=== PATIENT | male | born 1945 | race Caucasian/White ===

== ENCOUNTER → 2019-12-04 09:46 | Outpatient (CLI) | payer OTHER, SELFPAY ==
[2019-12-04 10:26] LABS: Alanine Aminotransferase 60 IU/L (<50); Albumin 4.3 g/dL (3.5-5.0); Albumin Globulin Ratio 1.5 (1.0-2.8); Alkaline Phosphatase 53 U/L (38-126); Aspartate Aminotransferase 51 IU/L (17-59); BUN Creatinine Ratio 28.6 (6-22); Bilirubin Total 0.6 mg/dL (0.2-1.3); Blood Urea Nitrogen 20 mg/dL (9-20); Calcium 9.4 mg/dL (8.4-10.2); Carbon Dioxide 24 mmol/L (22-32); Chloride 109 mmol/L (98-107); Cholesterol 96 mg/dL (140-199); Estimated Glomerular Filt Rate > 60.0 mL/min (>60); Globulin 2.9 g/dL (1.7-4.1); Glucose 116 mg/dL (80-110); HDL Cholesterol 30 mg/dL (40-60); HEMOLYSIS < 15 (0-50); LDL Cholesterol Calculated 49 mg/dL (<100); Potassium 4.1 mmol/L (3.4-5.1); Sodium 140 mmol/L (137-145); Total Protein 7.2 g/dL (6.3-8.2); Triglycerides 83 mg/dL (35-150)
[2019-12-04 10:43] LABS: Free T3, Triiodothyronine Free 3.67 pg/mL (2.77-5.27); Free T4, Direct Thyroxine 0.83 ng/dL (0.78-2.19)
[2019-12-04 10:56] LABS: Prostate Specific Antigen Scrn 0.252 ng/mL (0.1-4.0)
[2019-12-04 10:57] LABS: Thyroid Stimulating Hormone 3.81 uIU/mL (0.47-4.68)
[2019-12-04 16:39] LABS: Microalbumin Urine Random 1.7 mg/dL (0-1.6)
[2019-12-04 16:40] LABS: Creatinine Urine Random 221.8 mg/dL; Microalbumi Creatinin Ratio Ur 7.6 ug/mg CR (<30)
== END ==
PROVIDERS: PCP Nurse Practitioner; Referring Provider Nurse Practitioner; Visit Provider Nurse Practitioner
DX: E78.5 Hyperlipidemia, unspecified (principal); I10 Essential (primary) hypertension; Z79.899 Other long term (current) drug therapy; Z86.73 Personal history of transient ischemic attack (TIA), and cerebral infarction without residual deficits; Z95.5 Presence of coronary angioplasty implant and graft
CPT/HCPCS: 36415; 80053; 80061; 82043; 82570; 84439; 84443; 84481; G0103

== ENCOUNTER 2019-12-04 10:30 | Outpatient (RCR) | payer OTHER, SELFPAY ==
--- NOTE | 2019-11-01 18:32 | PT.OIE ---
Current Diagnoses Difficulty in walking, not elsewhere classified (11/01/19) Other abnormalities of gait and mobility (11/01/19) Weakness (11/01/19) Personal history of transient ischemic attack (TIA), and cerebral infarction without residual deficits (11/01/19) Past Medical History (Last Updated 06/12/19 @ 21:28 by Edilia Ballard) Expressive aphasia (Acute) History of heart attack (Acute) History of stroke (Resolved ~2008) Hyperlipidemia (Acute) Hypertension (Acute) Other retirement (current) drug therapy (Acute) Weakness of right side of body (Acute) Past Surgical History (Last Updated 06/12/19 @ 21:28 by Edilia Ballard) History of heart artery stent (Acute ~2017) Visit Care Team Role Provider Type KESHIA White Attending Provider Advanced Access Analyst Primary Care Provider Referring Provider Specialty: Family Practice Address: [address] [place] [address], [facility] Email: [email or web address] Physical Therapy Initial Evaluation PT-OP-A Visit Information Start: 11/01/19 10:53 Freq: Status: Active Protocol: Document 11/01/19 16:00 [facility] (Rec: 11/01/19 17:57 [facility] [id number]) Out-Patient Physical Therapy Visit Information Visit Information Visit Type Initial Evaluation Visit Start Time 16:07 Visit Stop Time 16:48 Total Visit Minutes 41 Visit Number 1 Number of CITY ALDERMAN Visits 0 PT-OP-B Current Condition Start: 11/01/19 10:53 Freq: Status: Active Protocol: Document 11/01/19 16:00 [facility] (Rec: 11/01/19 17:57 [facility] [id number]) Current Condition History of Current Condition Onset Date since CVA Current Complaints weakness & balance History of Current Condition Pt fell one night when going to/from bathroom and could not get him up. and son were needed to get him up . wants advice for getting him up from ground. Stroke was 11 years ago and has only fallen aobut 6 times after the first year. This most recent fall was about 1 month ago. Typically just with him at home and son will be gone again after phase 3. Deficits noted since stroke: expressive aphasia, and RUE & LE weakness. notes pt normally has good balance and rarely falls. Denies any dizziness. In the house he does not use his cane. He only uses it outside the house. Treatment Goals Patient/Caregiver Goals wants to be able to help him get off ground PT-OP-E Functional Tests Start: 11/01/19 10:53 Freq: Status: Active Protocol: Document 11/01/19 16:00 [facility] (Rec: 11/01/19 18:32 [facility] [id number]) Functional Tests Dynamic Gait Index (DGI) Score 16 DGI Impairment Rating 20 to <40% Impaired (Score 15- 19) PT-OP-G Mobility & Gait Start: 11/01/19 10:53 Freq: Status: Active Protocol: Document 11/01/19 16:00 [facility] (Rec: 11/01/19 18:32 [facility] [id number]) OP Mobility Evaluation Transfers Sit to Stand requires use of UE OP Gait Assessment Comments Gait Comments Pt amb with cane presenting to clinic but did testing without cane. He has significant L lat lean in order to clear RLE during swing phase. Dec push off and dec stance time on RLE PT-OP-M Strength Start: 11/01/19 10:53 Freq: Status: Active Protocol: Document 11/01/19 16:00 [facility] (Rec: 11/01/19 17:57 [facility] [id number]) Hip Strength Hip Manual Muscle Testing Right Flexion (L2) 3- Fair- Abduction 4- Good- Adduction 4- Good- External Rotation 0 Zero Internal Rotation 0 Zero Comments abd and add tested seated and did not try s/l so not pure MMT Left Flexion (L2) 3+ Fair+ External Rotation 4+ Good+ Internal Rotation 4+ Good+ Knee Strength Knee Manual Muscle Testing Right Flexion (S2) 1 Trace Extension (L3) 3+ Fair+ Left Flexion (S2) 5 Normal Extension (L3) 5 Normal Ankle/Foot Strength Ankle and Foot Manual Muscle Testing Right Dorsiflexion (L4) 0 Zero Plantarflexion (S1) 1 Trace Left Dorsiflexion (L4) 5 Normal Plantarflexion (S1) 5 Normal Comments tested seated PT-OP-Q Treatments Start: 11/01/19 10:53 Freq: Status: Active Protocol: Document 11/01/19 16:00 [facility] (Rec: 11/01/19 18:32 [facility] [id number]) Self-Care/Home Management Treatment Education Patient Education Fall Risk Other Education edu on different strategies for up/down from ground, edu on how balance systems work & why balance training is important PT-OP-T Assessment and Plan Start: 11/01/19 10:53 Freq: Status: Active Protocol: Document 11/01/19 16:00 [facility] (Rec: 11/01/19 18:32 [facility] [id number]) Physical Therapy Assessment Rehab Potential Rehabilitation Potential Good Evaluation Complexity Number of Personal Factors/Comorbidities 3 or More Number of Body Systems Impaired 4 or More Clinical Presentation at Evaluation Evolving Impairments Impairments Activity Tolerance,Balance, Functional Activities, Functional Mobility,Gait, Strength,Transfers Goals activity [place] Wrapper Maker Goal (LTG) Pt and will be able to get pt up/down from the ground . LTG Duration 01/01/20 balance Impairment DGI [place] Wrapper Maker Goal (LTG) Improve DGI to in order to show dec risk for falls. LTG Duration 01/01/20 strength Short Term Goal (STG) Pt will be indep with HEP STG Duration 12/01/19 Care Home Goal (LTG) Pt will have inc in LE strength B 1 grade except in areas that MMT was 1/5 or less . LTG Duration 01/01/20 Assessment Summary Assessment Pt presents with dec ability to get up/down from ground, weakness and dec balance. He has these impairments since CVA 11 years ago. His is concerned because recent fall required assistance of herself and another person to get pt up from the ground. Pt has not fallen very frequently since CVA but she is concerned about ability to get him up and down. He does have weakness and dec balanec and would benefit from PT to work on this along with transfers to/ from ground. Physical Therapy Plan Frequency and Duration Frequency of Treatment 1-2x/week Duration of Treatment 2 months Plan of Care Start Date 11/01/19 Plan of Care End Date 01/01/20 Therapeutic Interventions Therapeutic Interventions Aquatic Therapy,Balance Training,Gait Training,Home Exercise Program,Manual Therapy,Neuromuscular Re- education,Orthotic/Prosthetic Management,Patient/Caregiver Education,Self-Care/Home Management,Taping,Therapeutic Activities,Therapeutic Exercises Modalities Cold Pack/Ice Massage,Electric Stimulation,Hot Packs Next Visit Focus/Plan Next Note Type Treatment Note Next Visit Plan work on up/down to/from ground , edu on HEP for strengthening , show AFO as possible support
--- NOTE | 2019-11-01 18:33 | PT.OPPOC ---
Physical, Occupational & Speech Therapy At [facility] Current Diagnoses Difficulty in walking, not elsewhere classified (11/01/19) Other abnormalities of gait and mobility (11/01/19) Weakness (11/01/19) Personal history of transient ischemic attack (TIA), and cerebral infarction without residual deficits (11/01/19) Visit Care Team Role Provider Type KESHIA White Attending Provider Advanced Bread Packer Primary Care Provider Referring Provider Specialty: [facility] Address: [address] [place] [address], [facility] Email: [email or web address] Plan Of Care PT-OP-T Assessment and Plan Start: 11/01/19 10:53 Freq: Status: Active Protocol: Document 11/01/19 16:00 [facility] (Rec: 11/01/19 18:32 [facility] [id number]) Physical Therapy Assessment Rehab Potential Rehabilitation Potential Good Evaluation Complexity Number of Personal Factors/Comorbidities 3 or More Number of Body Systems Impaired 4 or More Clinical Presentation at Evaluation Evolving Impairments Impairments Activity Tolerance,Balance, Functional Activities, Functional Mobility,Gait, Strength,Transfers Goals activity Supervisor Photocomposition Goal (LTG) Pt and will be able to get pt up/down from the ground . LTG Duration 01/01/20 balance Impairment DGI 16 Senior Living Goal (LTG) Improve DGI to 1924 in order to show dec risk for falls. LTG Duration 01/01/20 strength Short Term Goal (STG) Pt will be indep with HEP STG Duration 12/01/19 Senior Living Goal (LTG) Pt will have inc in LE strength B 1 grade except in areas that MMT was 1/5 or less . LTG Duration 01/01/20 Assessment Summary Assessment Pt presents with dec ability to get up/down from ground, weakness and dec balance. He has these impairments since CVA 11 years ago. His is concerned because recent fall required assistance of herself and another person to get pt up from the ground. Pt has not fallen very frequently since CVA but she is concerned about ability to get him up and down. He does have weakness and dec balanec and would benefit from PT to work on this along with transfers to/ from ground. Physical Therapy Plan Frequency and Duration Frequency of Treatment 1-2x/week Duration of Treatment 2 months Plan of Care Start Date 11/01/19 Plan of Care End Date 01/01/20 Therapeutic Interventions Therapeutic Interventions Aquatic Therapy,Balance Training,Gait Training,Home Exercise Program,Manual Therapy,Neuromuscular Re- education,Orthotic/Prosthetic Management,Patient/Caregiver Education,Self-Care/Home Management,Taping,Therapeutic Activities,Therapeutic Exercises Modalities Cold Pack/Ice Massage,Electric Stimulation,Hot Packs Next Visit Focus/Plan Next Note Type Treatment Note Next Visit Plan work on up/down to/from ground , edu on HEP for strengthening , show AFO as possible support Plan of Care Dates Plan of Care Start Date 11/01/19 Plan of Care End Date 01/01/20 Electronically Signed by: Caitie Mckeon, PT 11/01/19 [id number] Please Sign and Return: I have reviewed this Plan of Care and certify that the skilled therapy services above are required to meet the patient?s needs. Physician Signature Date Printed Name and Credentials Clinical Instructor Signature Printed Name and Credentials
--- NOTE | 2019-11-08 18:35 | PT.OTN ---
Current Diagnoses Difficulty in walking, not elsewhere classified (11/08/19) Other abnormalities of gait and mobility (11/08/19) Weakness (11/08/19) Personal history of transient ischemic attack (TIA), and cerebral infarction without residual deficits (11/08/19) Physical Therapy Treatment Note PT-OP-A Visit Information Start: 11/01/19 10:53 Freq: Status: Active Protocol: Document 11/08/19 18:28 [facility] (Rec: 11/08/19 18:35 [facility] [id number]) Out-Patient Physical Therapy Visit Information Visit Information Visit Type Treatment Note Visit Start Time 16:03 Visit Stop Time 16:43 Total Visit Minutes 40 Visit Number 2 Number of DRILL SHARPENER OPERATOR Visits 0 PT-OP-B Current Condition Start: 11/01/19 10:53 Freq: Status: Active Protocol: Document 11/01/19 16:00 [facility] (Rec: 11/01/19 17:57 [facility] [id number]) Current Condition History of Current Condition Onset Date since CVA Current Complaints weakness & balance History of Current Condition Pt fell one night when going to/from bathroom and could not get him up. and son were needed to get him up . wants advice for getting him up from ground. Stroke was 11 years ago and has only fallen aobut 6 times after the first year. This most recent fall was about 1 month ago. Typically just with him at home and son will be gone again after phase 3. Deficits noted since stroke: expressive aphasia, and RUE & LE weakness. notes pt normally has good balance and rarely falls. Denies any dizziness. In the house he does not use his cane. He only uses it outside the house. Treatment Goals Patient/Caregiver Goals wants to be able to help him get off ground PT-OP-C Subjective Start: 11/01/19 10:53 Freq: Status: Active Protocol: Document 11/08/19 18:28 [facility] (Rec: 11/08/19 18:35 [facility] [id number]) OP-PT Subjective Patient Comments Patient Comments reports pt had another fall yesterday in the dining room. Unsure why he fell. She and her son were needed to get him up. PT-OP-E Functional Tests Start: 11/01/19 10:53 Freq: Status: Active Protocol: Document 11/01/19 16:00 [facility] (Rec: 11/01/19 18:32 [facility] [id number]) Functional Tests Dynamic Gait Index (DGI) Score 16 DGI Impairment Rating 20 to <40% Impaired (Score 15- 19) PT-OP-G Mobility & Gait Start: 11/01/19 10:53 Freq: Status: Active Protocol: Document 11/01/19 16:00 [facility] (Rec: 11/01/19 18:32 [facility] [id number]) OP Mobility Evaluation Transfers Sit to Stand requires use of UE OP Gait Assessment Comments Gait Comments Pt amb with cane presenting to clinic but did testing without cane. He has significant L lat lean in order to clear RLE during swing phase. Dec push off and dec stance time on RLE PT-OP-M Strength Start: 11/01/19 10:53 Freq: Status: Active Protocol: Document 11/01/19 16:00 [facility] (Rec: 11/01/19 17:57 [facility] [id number]) Hip Strength Hip Manual Muscle Testing Right Flexion (L2) 3- Fair- Abduction 4- Good- Adduction 4- Good- External Rotation 0 Zero Internal Rotation 0 Zero Comments abd and add tested seated and did not try s/l so not pure MMT Left Flexion (L2) 3+ Fair+ External Rotation 4+ Good+ Internal Rotation 4+ Good+ Knee Strength Knee Manual Muscle Testing Right Flexion (S2) 1 Trace Extension (L3) 3+ Fair+ Left Flexion (S2) 5 Normal Extension (L3) 5 Normal Ankle/Foot Strength Ankle and Foot Manual Muscle Testing Right Dorsiflexion (L4) 0 Zero Plantarflexion (S1) 1 Trace Left Dorsiflexion (L4) 5 Normal Plantarflexion (S1) 5 Normal Comments tested seated PT-OP-Q Treatments Start: 11/01/19 10:53 Freq: Status: Active Protocol: Document 11/08/19 18:28 [facility] (Rec: 11/08/19 18:35 [facility] [id number]) Gym Equipment Shuttle Balance blue clips Reps/Duration w/ pertubations of board Comments fwd & side:WBOS, NBOS fwd: staggered stance B Therapeutic Exercises Standing Exercises side step Side bilateral Reps/Minutes 6ftx2 ea hip ext Side bilateral Reps/Minutes 10 hip abd Side bilateral Reps/Minutes 10 sit<>stand Standing Exercise Name no hands Reps/Minutes 5 Therapeutic Activity Therapeutic Activity ground transfers Comments 1.transfer down to 12 in step then to black mat at lowest set up 2.1.transfer down to 8 in step stool then to black mat at lowest set up 3.1.transfer down to 8 in step stool then 4 in step then to step stool then to black mat at lowest set up w/ approximation to RLE Neuro Re-Education Treatment Balance Activities toe taps Details alt to 4 in step Reps/Duration 8 B PT-OP-T Assessment and Plan Start: 11/01/19 10:53 Freq: Status: Active Protocol: Document 11/08/19 18:28 [facility] (Rec: 11/08/19 18:35 [facility] [id number]) Physical Therapy Assessment Goals activity Nursing Home Goal (LTG) Pt and will be able to get pt up/down from the ground . LTG Duration 01/01/20 balance Impairment DGI Nursing Home Goal (LTG) Improve DGI to in order to show dec risk for falls. LTG Duration 01/01/20 strength Short Term Goal (STG) Pt will be indep with HEP STG Duration 12/01/19 Display Carver Goal (LTG) Pt will have inc in LE strength B 1 grade except in areas that MMT was 1/5 or less . LTG Duration 01/01/20 Assessment Summary Assessment Pt hadn trouble getting down to 4 in step from step stool and difficulty getting back up without use of approximation into RLE in bent position. Able to do transfer from 8 in stool to mat table SBA. He did well with balance and improved with balance board balance with inc time on it. Physical Therapy Plan Frequency and Duration Frequency of Treatment 1-2x/week Duration of Treatment 2 months Plan of Care Start Date 11/01/19 Plan of Care End Date 01/01/20 Next Visit Focus/Plan Next Note Type Treatment Note Next Visit Plan work on up/down to/from ground , review HEP for strengthening , show AFO as possible support , balance on uneven surfaces & dynamic balance
--- NOTE | 2019-11-14 17:14 | PT.OTN ---
Current Diagnoses Difficulty in walking, not elsewhere classified (11/14/19) Other abnormalities of gait and mobility (11/14/19) Weakness (11/14/19) Personal history of transient ischemic attack (TIA), and cerebral infarction without residual deficits (11/14/19) Physical Therapy Treatment Note PT-OP-A Visit Information Start: 11/01/19 10:53 Freq: Status: Active Protocol: Document 11/14/19 16:49 [facility] (Rec: 11/14/19 17:14 [facility] [id number]) Out-Patient Physical Therapy Visit Information Visit Information Visit Type Treatment Note Visit Start Time 14:34 Visit Stop Time 15:14 Total Visit Minutes 40 Visit Number 3 Number of WHARFINGER CHIEF Visits 0 PT-OP-B Current Condition Start: 11/01/19 10:53 Freq: Status: Active Protocol: Document 11/01/19 16:00 [facility] (Rec: 11/01/19 17:57 [facility] [id number]) Current Condition History of Current Condition Onset Date since CVA Current Complaints weakness & balance History of Current Condition Pt fell one night when going to/from bathroom and could not get him up. and son were needed to get him up . wants advice for getting him up from ground. Stroke was 11 years ago and has only fallen aobut 6 times after the first year. This most recent fall was about 1 month ago. Typically just with him at home and son will be gone again after phase 3. Deficits noted since stroke: expressive aphasia, and RUE & LE weakness. notes pt normally has good balance and rarely falls. Denies any dizziness. In the house he does not use his cane. He only uses it outside the house. Treatment Goals Patient/Caregiver Goals wants to be able to help him get off ground PT-OP-C Subjective Start: 11/01/19 10:53 Freq: Status: Active Protocol: Document 11/14/19 16:49 [facility] (Rec: 11/14/19 17:14 [facility] [id number]) OP-PT Subjective Patient Comments Patient Comments Pt reports doing exercsies at home. wants to continue to work on up/down from ground again. PT-OP-E Functional Tests Start: 11/01/19 10:53 Freq: Status: Active Protocol: Document 11/01/19 16:00 [facility] (Rec: 11/01/19 18:32 [facility] [id number]) Functional Tests Dynamic Gait Index (DGI) Score 16 DGI Impairment Rating 20 to <40% Impaired (Score 15- 19) PT-OP-G Mobility & Gait Start: 11/01/19 10:53 Freq: Status: Active Protocol: Document 11/01/19 16:00 [facility] (Rec: 11/01/19 18:32 [facility] [id number]) OP Mobility Evaluation Transfers Sit to Stand requires use of UE OP Gait Assessment Comments Gait Comments Pt amb with cane presenting to clinic but did testing without cane. He has significant L lat lean in order to clear RLE during swing phase. Dec push off and dec stance time on RLE PT-OP-M Strength Start: 11/01/19 10:53 Freq: Status: Active Protocol: Document 11/01/19 16:00 [facility] (Rec: 11/01/19 17:57 [facility] [id number]) Hip Strength Hip Manual Muscle Testing Right Flexion (L2) 3- Fair- Abduction 4- Good- Adduction 4- Good- External Rotation 0 Zero Internal Rotation 0 Zero Comments abd and add tested seated and did not try s/l so not pure MMT Left Flexion (L2) 3+ Fair+ External Rotation 4+ Good+ Internal Rotation 4+ Good+ Knee Strength Knee Manual Muscle Testing Right Flexion (S2) 1 Trace Extension (L3) 3+ Fair+ Left Flexion (S2) 5 Normal Extension (L3) 5 Normal Ankle/Foot Strength Ankle and Foot Manual Muscle Testing Right Dorsiflexion (L4) 0 Zero Plantarflexion (S1) 1 Trace Left Dorsiflexion (L4) 5 Normal Plantarflexion (S1) 5 Normal Comments tested seated PT-OP-Q Treatments Start: 11/01/19 10:53 Freq: Status: Active Protocol: Document 11/14/19 16:49 [facility] (Rec: 11/14/19 17:14 [facility] [id number]) Gym Equipment Shuttle Balance red clips Comments fwd: WBOS & NBOS side:W PARMINDER Therapeutic Exercises Supine Exercises eccentric lower Supine Exercise Name eccentric Side bilateral Reps/Minutes 3 Comments from flexed position SKTC Supine Exercise Name assisted - instructed Side bilateral Reps/Minutes 30 sec x2 Standing Exercises side step Side bilateral Reps/Minutes 20ft hip ext Side bilateral Reps/Minutes 10 hip abd Side bilateral Reps/Minutes 10 Therapeutic Activity Therapeutic Activity ground transfers Comments 1. transfer down to 8 in stool then to 4 in step then to ground 2. transfer to 4 in step with mod A, transfer to 8 in step then to blackmat table at lowest setting Manual Therapy Treatment Joint Mobilizations hip Joint b Direction inf FM Grade III PT-OP-T Assessment and Plan Start: 11/01/19 10:53 Freq: Status: Active Protocol: Document 11/14/19 16:49 [facility] (Rec: 11/14/19 17:14 [facility] [id number]) Physical Therapy Assessment Goals activity Coat Padder Goal (LTG) Pt and will be able to get pt up/down from the ground . LTG Duration 01/01/20 balance Impairment DGI Coat Padder Goal (LTG) Improve DGI to in order to show dec risk for falls. LTG Duration 01/01/20 strength Short Term Goal (STG) Pt will be indep with HEP STG Duration 12/01/19 Half-Way Goal (LTG) Pt will have inc in LE strength B 1 grade except in areas that MMT was 1/5 or less . LTG Duration 01/01/20 Assessment Summary Assessment Pt able to do transfer all the way up and down from gorund but required mod A from ground to 4 in step due to inability to sit w/hips flexed enough to push up to 4 in step from ground. Manual mobs done to inc hip ROM which improved hip PROM which should helpw ith ability to transfer from ground. Physical Therapy Plan Frequency and Duration Frequency of Treatment 1-2x/week Duration of Treatment 2 months Plan of Care Start Date 11/01/19 Plan of Care End Date 01/01/20 Next Visit Focus/Plan Next Note Type Treatment Note Next Visit Plan work on up/down to/from ground , review HEP for strengthening , show AFO as possible support , balance on uneven surfaces & dynamic balance
--- NOTE | 2019-11-22 18:28 | PT.OTN ---
Current Diagnoses Difficulty in walking, not elsewhere classified (11/22/19) Other abnormalities of gait and mobility (11/22/19) Weakness (11/22/19) Personal history of transient ischemic attack (TIA), and cerebral infarction without residual deficits (11/22/19) Physical Therapy Treatment Note PT-OP-A Visit Information Start: 11/01/19 10:53 Freq: Status: Active Protocol: Document 11/22/19 18:24 [facility] (Rec: 11/22/19 18:28 [facility] [id number]) Out-Patient Physical Therapy Visit Information Visit Information Visit Type Treatment Note Visit Start Time 16:02 Visit Stop Time 16:45 Total Visit Minutes 43 Visit Number 4 Number of ETCHER PRINTED CIRCUIT BOARDS Visits 0 PT-OP-B Current Condition Start: 11/01/19 10:53 Freq: Status: Active Protocol: Document 11/01/19 16:00 [facility] (Rec: 11/01/19 17:57 [facility] [id number]) Current Condition History of Current Condition Onset Date since CVA Current Complaints weakness & balance History of Current Condition Pt fell one night when going to/from bathroom and could not get him up. and son were needed to get him up . wants advice for getting him up from ground. Stroke was 11 years ago and has only fallen aobut 6 times after the first year. This most recent fall was about 1 month ago. Typically just with him at home and son will be gone again after phase 3. Deficits noted since stroke: expressive aphasia, and RUE & LE weakness. notes pt normally has good balance and rarely falls. Denies any dizziness. In the house he does not use his cane. He only uses it outside the house. Treatment Goals Patient/Caregiver Goals wants to be able to help him get off ground PT-OP-C Subjective Start: 11/01/19 10:53 Freq: Status: Active Protocol: Document 11/22/19 18:24 [facility] (Rec: 11/22/19 18:28 [facility] [id number]) OP-PT Subjective Patient Comments Patient Comments reports pt has been compliant with exercises PT-OP-E Functional Tests Start: 11/01/19 10:53 Freq: Status: Active Protocol: Document 11/01/19 16:00 [facility] (Rec: 11/01/19 18:32 [facility] [email or web address]) Functional Tests Dynamic Gait Index (DGI) Score 16 DGI Impairment Rating 20 to <40% Impaired (Score 15- 19) PT-OP-G Mobility & Gait Start: 11/01/19 10:53 Freq: Status: Active Protocol: Document 11/01/19 16:00 [facility] (Rec: 11/01/19 18:32 [facility] [email or web address]) OP Mobility Evaluation Transfers Sit to Stand requires use of UE OP Gait Assessment Comments Gait Comments Pt amb with cane presenting to clinic but did testing without cane. He has significant L lat lean in order to clear RLE during swing phase. Dec push off and dec stance time on RLE PT-OP-M Strength Start: 11/01/19 10:53 Freq: Status: Active Protocol: Document 11/01/19 16:00 [facility] (Rec: 11/01/19 17:57 [facility] [id number]) Hip Strength Hip Manual Muscle Testing Right Flexion (L2) 3- Fair- Abduction 4- Good- Adduction 4- Good- External Rotation 0 Zero Internal Rotation 0 Zero Comments abd and add tested seated and did not try s/l so not pure MMT Left Flexion (L2) 3+ Fair+ External Rotation 4+ Good+ Internal Rotation 4+ Good+ Knee Strength Knee Manual Muscle Testing Right Flexion (S2) 1 Trace Extension (L3) 3+ Fair+ Left Flexion (S2) 5 Normal Extension (L3) 5 Normal Ankle/Foot Strength Ankle and Foot Manual Muscle Testing Right Dorsiflexion (L4) 0 Zero Plantarflexion (S1) 1 Trace Left Dorsiflexion (L4) 5 Normal Plantarflexion (S1) 5 Normal Comments tested seated PT-OP-Q Treatments Start: 11/01/19 10:53 Freq: Status: Active Protocol: Document 11/22/19 18:24 [facility] (Rec: 11/22/19 18:28 [facility] [id number]) Therapeutic Exercises Supine Exercises eccentric lower Supine Exercise Name eccentric Side bilateral Reps/Minutes 3 Comments from flexed position Sitting Exercises V sit Sitting Exercise Name seated on plinth w/B LE bent up Reps/Minutes 30 sec x2 eccentric lower Sitting Exercise Name reverse sit up Reps/Minutes 10 Comments on plinth Therapeutic Activity Therapeutic Activity ground transfers Comments 1. transfer down to 8 in stool then to ground 2. transfer to 4 in step with mod A, transfer to 8 in step w /min A then to blackndt table at lowest setting Manual Therapy Treatment Joint Mobilizations hip Joint b Direction inf FM Grade III Neuro Re-Education Treatment Balance Activities tilt board Details fwd & back & side/side Comments Wt shifts & balancing blue foam Details WBOS, NBOS EO/EC & head turns PT-OP-T Assessment and Plan Start: 11/01/19 10:53 Freq: Status: Active Protocol: Document 11/22/19 18:24 [facility] (Rec: 11/22/19 18:28 [facility] [email or web address]) Physical Therapy Assessment Goals activity Demonstrator Sewing Techniques Goal (LTG) Pt and will be able to get pt up/down from the ground . LTG Duration 01/01/20 balance Impairment DGI Demonstrator Sewing Techniques Goal (LTG) Improve DGI to in order to show dec risk for falls. LTG Duration 01/01/20 strength Short Term Goal (STG) Pt will be indep with HEP STG Duration 12/01/19 [facility] Goal (LTG) Pt will have inc in LE strength B 1 grade except in areas that MMT was 1/5 or less . LTG Duration 01/01/20 Assessment Summary Assessment Pt has significant difficulty with abdomenal exercises which likely contributes to his difficulty for getting up from ground. He has difficulty maintaining seated on ground w /knees bent up position. Physical Therapy Plan Frequency and Duration Frequency of Treatment 1-2x/week Duration of Treatment 2 months Plan of Care Start Date 11/01/19 Plan of Care End Date 01/01/20 Next Visit Focus/Plan Next Note Type Treatment Note Next Visit Plan work on up/down to/from ground , review HEP for strengthening , show AFO as possible support , balance on uneven surfaces & dynamic balance
--- NOTE | 2019-11-28 18:03 | PT.OTN ---
Current Diagnoses Difficulty in walking, not elsewhere classified (11/28/19) Other abnormalities of gait and mobility (11/28/19) Weakness (11/28/19) Personal history of transient ischemic attack (TIA), and cerebral infarction without residual deficits (11/28/19) Physical Therapy Treatment Note PT-OP-A Visit Information Start: 11/01/19 10:53 Freq: Status: Active Protocol: Document 11/28/19 17:40 [facility] (Rec: 11/28/19 18:03 [facility] [email or web address]) Out-Patient Physical Therapy Visit Information Visit Information Visit Type Treatment Note Visit Start Time 16:47 Visit Stop Time 17:28 Total Visit Minutes 41 Visit Number 5 Number of ANTENNA DESIGN ENGINEER Visits 0 PT-OP-B Current Condition Start: 11/01/19 10:53 Freq: Status: Active Protocol: Document 11/01/19 16:00 [facility] (Rec: 11/01/19 17:57 [facility] [id number]) Current Condition History of Current Condition Onset Date since CVA Current Complaints weakness & balance History of Current Condition Pt fell one night when going to/from bathroom and could not get him up. and son were needed to get him up . wants advice for getting him up from ground. Stroke was 11 years ago and has only fallen aobut 6 times after the first year. This most recent fall was about 1 month ago. Typically just with him at home and son will be gone again after phase 3. Deficits noted since stroke: expressive aphasia, and RUE & LE weakness. notes pt normally has good balance and rarely falls. Denies any dizziness. In the house he does not use his cane. He only uses it outside the house. Treatment Goals Patient/Caregiver Goals wants to be able to help him get off ground PT-OP-C Subjective Start: 11/01/19 10:53 Freq: Status: Active Protocol: Document 11/28/19 17:40 [facility] (Rec: 11/28/19 18:03 [facility] [id number]) OP-PT Subjective Patient Comments Patient Comments Pt asks not to work on up/down to/from ground today. PT-OP-E Functional Tests Start: 11/01/19 10:53 Freq: Status: Active Protocol: Document 11/01/19 16:00 [facility] (Rec: 11/01/19 18:32 [facility] [id number]) Functional Tests Dynamic Gait Index (DGI) Score 16 DGI Impairment Rating 20 to <40% Impaired (Score 15- 19) PT-OP-G Mobility & Gait Start: 11/01/19 10:53 Freq: Status: Active Protocol: Document 11/01/19 16:00 [facility] (Rec: 11/01/19 18:32 [facility] [id number]) OP Mobility Evaluation Transfers Sit to Stand requires use of UE OP Gait Assessment Comments Gait Comments Pt amb with cane presenting to clinic but did testing without cane. He has significant L lat lean in order to clear RLE during swing phase. Dec push off and dec stance time on RLE PT-OP-M Strength Start: 11/01/19 10:53 Freq: Status: Active Protocol: Document 11/01/19 16:00 [facility] (Rec: 11/01/19 17:57 [facility] [id number]) Hip Strength Hip Manual Muscle Testing Right Flexion (L2) 3- Fair- Abduction 4- Good- Adduction 4- Good- External Rotation 0 Zero Internal Rotation 0 Zero Comments abd and add tested seated and did not try s/l so not pure MMT Left Flexion (L2) 3+ Fair+ External Rotation 4+ Good+ Internal Rotation 4+ Good+ Knee Strength Knee Manual Muscle Testing Right Flexion (S2) 1 Trace Extension (L3) 3+ Fair+ Left Flexion (S2) 5 Normal Extension (L3) 5 Normal Ankle/Foot Strength Ankle and Foot Manual Muscle Testing Right Dorsiflexion (L4) 0 Zero Plantarflexion (S1) 1 Trace Left Dorsiflexion (L4) 5 Normal Plantarflexion (S1) 5 Normal Comments tested seated PT-OP-Q Treatments Start: 11/01/19 10:53 Freq: Status: Active Protocol: Document 11/28/19 17:40 [facility] (Rec: 11/28/19 18:03 [facility] [id number]) Therapeutic Exercises Supine Exercises eccentric lower Supine Exercise Name eccentric Side bilateral Reps/Minutes 4 Comments from flexed position SKTC Supine Exercise Name assisted - instructed Side right Reps/Minutes 30 sec Sitting Exercises heel slide Sitting Exercise Name seated on plinth Side left Reps/Minutes 2x4 V sit Sitting Exercise Name seated on plinth w/B LE bent up Reps/Minutes 30 sec x2 eccentric lower Sitting Exercise Name reverse sit up Reps/Minutes 10 Comments on plinth w/feet up Neuro Re-Education Treatment Balance Activities blue tpads Details staggered stance B EO/EC tilt board Details fwd & back & side/side Comments Wt shifts EO& balancing w/EC blue foam Details WBOS, NBOS EO/EC toe taps Details alt to 4 in step Reps/Duration 5 B Self-Care/Home Management Treatment Education Caregiver Education discussed and showed how AFO could be helpful & took down info re: AFO, discussed having 4 in and 9 in step to then transition to a chair and dimensions of step were given to ; discussed progress he is making and continuation of HEP after dc PT-OP-T Assessment and Plan Start: 11/01/19 10:53 Freq: Status: Active Protocol: Document 11/28/19 17:40 [facility] (Rec: 11/28/19 18:03 [facility] [id number]) Physical Therapy Assessment Goals activity Adult Caregiver Goal (LTG) Pt and will be able to get pt up/down from the ground . LTG Duration 01/01/20 balance Impairment DGI 16 Adult Caregiver Goal (LTG) Improve DGI to in order to show dec risk for falls. LTG Duration 01/01/20 strength Short Term Goal (STG) Pt will be indep with HEP STG Duration 12/01/19 Group Home Goal (LTG) Pt will have inc in LE strength B 1 grade except in areas that MMT was 1/5 or less . LTG Duration 01/01/20 Assessment Summary Assessment pt cont to have difficultyw ith abdomenal exercsies but was able to perform with min cuieng. He is doing better with gait with inc hip flex and and pt made aware of this. Pt was not very interested in AFO but took note for possible future use. Physical Therapy Plan Frequency and Duration Frequency of Treatment 1-2x/week Duration of Treatment 2 months Plan of Care Start Date 11/01/19 Plan of Care End Date 01/01/20 Next Visit Focus/Plan Next Note Type Progress Note Next Visit Plan review HEP, work on up/down from ground w/, DGI & strength testing, DC if pt and have met ground transfer goal
--- NOTE | 2019-12-04 16:00 | PT.OTN ---
Current Diagnoses Difficulty in walking, not elsewhere classified (12/04/19) Other abnormalities of gait and mobility (12/04/19) Weakness (12/04/19) Personal history of transient ischemic attack (TIA), and cerebral infarction without residual deficits (12/04/19) Physical Therapy Treatment Note PT-OP-A Visit Information Start: 11/01/19 10:53 Freq: Status: Active Protocol: Document 12/04/19 16:00 [facility] (Rec: 12/05/19 09:32 [facility] [id number]) Out-Patient Physical Therapy Visit Information Visit Information Visit Type Discharge Summary Visit Start Time 10:35 Visit Stop Time 11:15 Total Visit Minutes 40 Visit Number 6 Number of ACCOUNT EXECUTIVE Visits 0 PT-OP-B Current Condition Start: 11/01/19 10:53 Freq: Status: Active Protocol: Document 11/01/19 16:00 [facility] (Rec: 11/01/19 17:57 [facility] [id number]) Current Condition History of Current Condition Onset Date since CVA Current Complaints weakness & balance History of Current Condition Pt fell one night when going to/from bathroom and could not get him up. and son were needed to get him up . wants advice for getting him up from ground. Stroke was 11 years ago and has only fallen aobut 6 times after the first year. This most recent fall was about 1 month ago. Typically just with him at home and son will be gone again after phase 3. Deficits noted since stroke: expressive aphasia, and RUE & LE weakness. notes pt normally has good balance and rarely falls. Denies any dizziness. In the house he does not use his cane. He only uses it outside the house. Treatment Goals Patient/Caregiver Goals wants to be able to help him get off ground PT-OP-C Subjective Start: 11/01/19 10:53 Freq: Status: Active Protocol: Document 12/04/19 16:00 [facility] (Rec: 12/05/19 09:32 [facility] [id number]) OP-PT Subjective Patient Comments Patient Comments and pt want dc if she is able to get pt up from ground. noting progress PT-OP-E Functional Tests Start: 11/01/19 10:53 Freq: Status: Active Protocol: Document 12/04/19 16:00 [facility] (Rec: 12/05/19 09:33 [facility] [id number]) Functional Tests Dynamic Gait Index (DGI) Score 19 PT-OP-G Mobility & Gait Start: 11/01/19 10:53 Freq: Status: Active Protocol: Document 11/01/19 16:00 [facility] (Rec: 11/01/19 18:32 [facility] [id number]) OP Mobility Evaluation Transfers Sit to Stand requires use of UE OP Gait Assessment Comments Gait Comments Pt amb with cane presenting to clinic but did testing without cane. He has significant L lat lean in order to clear RLE during swing phase. Dec push off and dec stance time on RLE PT-OP-M Strength Start: 11/01/19 10:53 Freq: Status: Active Protocol: Document 12/04/19 16:00 [facility] (Rec: 12/05/19 09:33 [facility] [id number]) Hip Strength Hip Manual Muscle Testing Right Flexion (L2) 3 Fair Abduction 4- Good- Adduction 4- Good- External Rotation 3- Fair- Internal Rotation 0 Zero Comments abd and add tested seated and did not try s/l so not pure MMT Left Flexion (L2) 3+ Fair+ External Rotation 4+ Good+ Internal Rotation 5 Normal Knee Strength Knee Manual Muscle Testing Right Flexion (S2) 1 Trace Extension (L3) 3+ Fair+ Left Flexion (S2) 5 Normal Extension (L3) 5 Normal PT-OP-Q Treatments Start: 11/01/19 10:53 Freq: Status: Active Protocol: Document 12/04/19 16:00 [facility] (Rec: 12/05/19 09:32 [facility] [id number]) Therapeutic Exercises Supine Exercises eccentric lower Supine Exercise Name eccentric Side bilateral Reps/Minutes 4 Comments from flexed position SKTC Supine Exercise Name assisted - instructed Side right Reps/Minutes 30 sec Sitting Exercises V sit Sitting Exercise Name seated on plinth w/B LE bent up Reps/Minutes 30 sec x2 eccentric lower Sitting Exercise Name reverse sit up Reps/Minutes 10 Comments on plinth w/feet up Standing Exercises side step Side bilateral Reps/Minutes 10ft hip ext Side bilateral Reps/Minutes 15 hip abd Side bilateral Reps/Minutes 15 sit<>stand Standing Exercise Name no hands Reps/Minutes 8 Therapeutic Activity Therapeutic Activity ground transfers Comments 1. transfer down to 8 in stool then 4 in step then to ground 2. transfer to 4 in step with mod A from w/instruction, transfer to 8 in step w/min A for stabilization of RLE then to blackmat table at lowest setting w/stabilizing surfaces Neuro Re-Education Treatment Balance Activities DGI Details Self-Care/Home Management Treatment Education Other Education edu on importance of exercises even if its every other day, importance of cont walking daily, edu on resuming PT if noted dec in balance or inc falls PT-OP-T Assessment and Plan Start: 11/01/19 10:53 Freq: Status: Active Protocol: Document 12/04/19 16:00 [facility] (Rec: 12/05/19 09:32 [facility] [id number]) Physical Therapy Assessment Goals activity Longterm Goal (LTG) Pt and will be able to get pt up/down from the ground . LTG Duration achieved balance Impairment DGI Longterm Goal (LTG) Improve DGI to in order to show dec risk for falls. LTG Duration achieved strength Short Term Goal (STG) Pt will be indep with HEP STG Duration achieved Internal Grinding Machine Operator Goal (LTG) Pt will have inc in LE strength B 1 grade except in areas that MMT was 1/5 or less . LTG Duration some improvement in strength Assessment Summary Assessment Pt had improvemetn with muscular strength, balance and is now able to get up/dwon from ground w/.T hey are instructed that if he falls to first assess if he is hurt and ifhe hits his head to call EMS. Pt able tog o thorugh exercises with min to mod cueing with focus on posture throughout. DC d/t meeting goals. Physical Therapy Plan Discharge Physical Therapy Discharge Reasons Goals Met
== END 2019-12-06 10:52 ==
LOC: PHYS 10:30
PROVIDERS: PCP Nurse Practitioner; Referring Provider Nurse Practitioner; Visit Provider Nurse Practitioner
DX: R53.1 Weakness (principal); Z86.73 Personal history of transient ischemic attack (TIA), and cerebral infarction without residual deficits; R26.89 Other abnormalities of gait and mobility; R26.2 Difficulty in walking, not elsewhere classified
CPT/HCPCS: 97110; 97112; 97162; 97530; 97535

== ENCOUNTER → 2020-03-12 08:40 | Outpatient (CLI) | payer OTHER, SELFPAY ==
[2020-03-12 10:35] LABS: Hemoglobin A1C% w Est Avg Glu 5.7 % (4.0-6.0)
[2020-03-12 11:10] LABS: Alanine Aminotransferase 54 IU/L (<50); Albumin 4.2 g/dL (3.5-5.0); Albumin Globulin Ratio 1.4 (1.0-2.8); Alkaline Phosphatase 54 U/L (38-126); Aspartate Aminotransferase 50 IU/L (17-59); Bilirubin Total 0.7 mg/dL (0.2-1.3); Bilirubin Unconjugated 0.7 mg/dL (0.0-1.1); Cholesterol 94 mg/dL (140-199); Globulin 2.9 g/dL (1.7-4.1); Glucose 108 mg/dL (80-110); HDL Cholesterol 35 mg/dL (40-60); HEMOLYSIS < 15 (0-50); LDL Cholesterol Calculated 40 mg/dL (<100); Total Protein 7.1 g/dL (6.3-8.2); Triglycerides 97 mg/dL (35-150)
[2020-03-13 03:17] LABS: HBsAg Screen Negative (Negative); Hepatitis A Antibody IgM Negative (Negative); Hepatitis B Core Antibody IgM Negative (Negative); Hepatitis C Antibody <0.1 s/co ratio (0.0-0.9)
== END ==
PROVIDERS: PCP Nurse Practitioner; Referring Provider Nurse Practitioner; Visit Provider Nurse Practitioner
DX: E78.5 Hyperlipidemia, unspecified (principal); I10 Essential (primary) hypertension; R73.9 Hyperglycemia, unspecified; R74.8 Abnormal levels of other serum enzymes; Z86.73 Personal history of transient ischemic attack (TIA), and cerebral infarction without residual deficits; R73.01 Impaired fasting glucose
CPT/HCPCS: 36415; 80061; 80074; 80076; 82947; 83036

== ENCOUNTER → 2020-06-04 11:04 | Outpatient (CLI) | payer OTHER, SELFPAY ==
[2020-06-04] MEDS: COVID-19 VACC #1, MRNA(MOD) 100 MCG/0.5 ML VIAL IM (11:13)
== END ==
PROVIDERS: PCP Nurse Practitioner; Visit Provider Internal Medicine
DX: Z23 Encounter for immunization (principal)
CPT/HCPCS: 0011A; 91301

== ENCOUNTER → 2020-07-02 11:22 | Outpatient (CLI) | payer OTHER, SELFPAY ==
[2020-07-02] MEDS: COVID-19 VACC #2, MRNA(MOD) 100 MCG/0.5 ML VIAL IM (11:39)
== END ==
PROVIDERS: PCP Nurse Practitioner; Visit Provider Internal Medicine
DX: Z23 Encounter for immunization (principal)
CPT/HCPCS: 0012A; 91301

== ENCOUNTER → 2021-06-30 09:13 | Outpatient (CLI) | payer MEDICARE, OTHER, SELFPAY ==
[2021-06-30 10:26] LABS: Hemoglobin A1C% w Est Avg Glu 5.6 % (4.0-6.0)
[2021-06-30 10:50] LABS: Alanine Aminotransferase 56 IU/L (<50); Albumin 4.4 g/dL (3.5-5.0); Albumin Globulin Ratio 1.4 (1.0-2.8); Alkaline Phosphatase 50 U/L (38-126); Aspartate Aminotransferase 48 IU/L (17-59); BUN Creatinine Ratio 28.4 (6-22); Bilirubin Total 0.6 mg/dL (0.2-1.3); Blood Urea Nitrogen 21 mg/dL (9-20); Calcium 9.5 mg/dL (8.4-10.2); Carbon Dioxide 27 mmol/L (22-32); Chloride 108 mmol/L (98-107); Cholesterol 123 mg/dL (140-199); Estimated Glomerular Filt Rate > 60.0 mL/min (>60); Globulin 3.2 g/dL (1.7-4.1); Glucose 117 mg/dL (80-110); HDL Cholesterol 40 mg/dL (40-60); HEMOLYSIS < 15 (0-50); LDL Cholesterol Calculated 67 mg/dL (<100); Potassium 4.2 mmol/L (3.4-5.1); Sodium 143 mmol/L (137-145); Total Protein 7.6 g/dL (6.3-8.2); Triglycerides 78 mg/dL (35-150)
[2021-06-30 10:53] LABS: Creatinine Urine Random 169.2 mg/dL
[2021-06-30 10:56] LABS: Microalbumin Urine Random 3.9 mg/dL (0-1.6)
[2021-06-30 11:07] LABS: Free T3, Triiodothyronine Free 3.36 pg/mL (2.77-5.27); Free T4, Direct Thyroxine 0.93 ng/dL (0.78-2.19)
[2021-06-30 11:20] LABS: Prostate Specific Antigen 0.195 ng/mL (0.10-4.00)
== END ==
PROVIDERS: PCP Nurse Practitioner; Referring Provider Nurse Practitioner; Visit Provider Nurse Practitioner
DX: Z79.899 Other long term (current) drug therapy (principal); I10 Essential (primary) hypertension; Z86.73 Personal history of transient ischemic attack (TIA), and cerebral infarction without residual deficits; E78.5 Hyperlipidemia, unspecified; Z12.5 Encounter for screening for malignant neoplasm of prostate
CPT/HCPCS: 36415; 80053; 80061; 82043; 82570; 83036; 84153; 84439; 84443; 84481; G0103

== ENCOUNTER → 2021-07-01 11:02 | Outpatient (CLI) | payer MEDICARE, OTHER, SELFPAY ==
[2021-07-02 09:33] LABS: Fecal Immunochemical Test Negative (Negative)
== END ==
PROVIDERS: PCP Nurse Practitioner; Referring Provider Nurse Practitioner; Visit Provider Nurse Practitioner
DX: I10 Essential (primary) hypertension (principal); E78.5 Hyperlipidemia, unspecified; Z86.73 Personal history of transient ischemic attack (TIA), and cerebral infarction without residual deficits; Z79.899 Other long term (current) drug therapy
CPT/HCPCS: 82274

== ENCOUNTER → 2022-08-12 09:19 | Outpatient (CLI) | payer MEDICARE, OTHER, SELFPAY ==
[2022-08-12 10:07] LABS: Add Manual Diff / Slide Review NO; Basophils Absolute Auto 0 /uL (0-100); Basophils Percent Auto 0.6 % (0-2); Eosinophils Absolute Auto 300 /uL (0-450); Eosinophils Percent Auto 3.4 % (2-4); Hematocrit 41.3 % (41-53); Lymphocytes Absolute Auto 2500 /uL (1100-4500); Lymphocytes Percent Auto 32.7 % (25-40); Mean Corpuscular Hemoglobin 30.6 PG (26-34); Mean Corpuscular Volume 90.2 fL (80-100); Monocytes Absolute Auto 600 /uL (0-900); Monocytes Percent Auto 7.6 % (3-14); Neutrophils Absolute Auto 4200 /uL (1500-7000); Neutrophils Percent Auto 55.7 % (50-75); Platelet Count 282 X10^3/uL (150-400); Red Blood Cell Count 4.57 X10^6/uL (4.5-5.9); Red Cell Distribution Width 13.6 % (11.6-14.8); White Blood Cell Count 7.5 X10^3/uL (4.5-11.0)
[2022-08-12 10:28] LABS: Alanine Aminotransferase 51 IU/L (<50); Albumin 4.3 g/dL (3.5-5.0); Albumin Globulin Ratio 1.3 (1.0-2.8); Alkaline Phosphatase 51 U/L (38-126); Aspartate Aminotransferase 44 IU/L (17-59); BUN Creatinine Ratio 24.7 (6-22); Bilirubin Total 0.6 mg/dL (0.2-1.3); Blood Urea Nitrogen 19 mg/dL (9-20); Calcium 9.4 mg/dL (8.4-10.2); Carbon Dioxide 28 mmol/L (22-32); Chloride 104 mmol/L (98-107); Cholesterol 109 mg/dL (140-199); Estimated Glomerular Filt Rate > 60 mL/min (>60); Globulin 3.4 g/dL (1.7-4.1); Glucose 103 mg/dL (80-110); HDL Cholesterol 36 mg/dL (40-60); HEMOLYSIS < 15 (0-50); LDL Cholesterol Calculated 52 mg/dL (<100); Potassium 4.5 mmol/L (3.4-5.1); Sodium 142 mmol/L (137-145); Total Protein 7.7 g/dL (6.3-8.2); Triglycerides 106 mg/dL (35-150)
[2022-08-12 10:45] LABS: Free T3, Triiodothyronine Free 4.05 pg/mL (2.77-5.27); Free T4, Direct Thyroxine 0.91 ng/dL (0.78-2.19)
[2022-08-12 10:57] LABS: Prostate Specific Antigen Scrn 0.277 ng/mL (0.1-4.0)
[2022-08-12 10:59] LABS: Thyroid Stimulating Hormone 3.06 uIU/mL (0.47-4.68)
[2022-08-13 16:12] LABS: Hep C Virus Ab w/Reflex Quant NEGATIVE s/c (NEGATIVE)
== END ==
PROVIDERS: PCP Nurse Practitioner; Referring Provider Nurse Practitioner; Visit Provider Nurse Practitioner
DX: E78.5 Hyperlipidemia, unspecified (principal); Z12.5 Encounter for screening for malignant neoplasm of prostate; F03.90 Unspecified dementia, unspecified severity, without behavioral disturbance, psychotic disturbance, mood disturbance, and anxiety; I10 Essential (primary) hypertension; Z86.73 Personal history of transient ischemic attack (TIA), and cerebral infarction without residual deficits; Z79.899 Other long term (current) drug therapy; Z11.59 Encounter for screening for other viral diseases
CPT/HCPCS: 36415; 80053; 80061; 84439; 84443; 84481; 85025; 86803; G0103

== ENCOUNTER → 2022-08-13 09:26 | Outpatient (CLI) | payer MEDICARE, OTHER, SELFPAY ==
[2022-08-13 12:11] LABS: Creatinine Urine Random 102.2 mg/dL
[2022-08-13 12:15] LABS: Microalbumi Creatinin Ratio Ur 21.5 ug/mg CR (<30); Microalbumin Urine Random 2.2 mg/dL (0-1.6)
[2022-08-14 13:37] LABS: Fecal Immunochemical Test Negative (Negative)
== END ==
PROVIDERS: PCP Nurse Practitioner; Referring Provider Nurse Practitioner; Visit Provider Nurse Practitioner
DX: E78.5 Hyperlipidemia, unspecified (principal); F03.90 Unspecified dementia, unspecified severity, without behavioral disturbance, psychotic disturbance, mood disturbance, and anxiety; I10 Essential (primary) hypertension; Z86.73 Personal history of transient ischemic attack (TIA), and cerebral infarction without residual deficits; Z12.11 Encounter for screening for malignant neoplasm of colon
CPT/HCPCS: 82043; 82274; 82570

== ENCOUNTER → 2022-12-14 17:32 | Outpatient (CLI) | payer MEDICARE, OTHER, SELFPAY ==
[2022-12-14 17:54] LABS: Add Manual Diff / Slide Review NO; Basophils Absolute Auto 100 /uL (0-100); Basophils Percent Auto 0.8 % (0-2); Eosinophils Absolute Auto 300 /uL (0-450); Eosinophils Percent Auto 4.3 % (2-4); Hematocrit 40.2 % (41-53); Lymphocytes Absolute Auto 3000 /uL (1100-4500); Lymphocytes Percent Auto 38.4 % (25-40); Mean Corpuscular HGB Conc 34.9 % (30-36); Mean Corpuscular Hemoglobin 31.1 PG (26-34); Mean Corpuscular Volume 89.2 fL (80-100); Monocytes Absolute Auto 700 /uL (0-900); Monocytes Percent Auto 8.7 % (3-14); Neutrophils Absolute Auto 3800 /uL (1500-7000); Neutrophils Percent Auto 47.8 % (50-75); Platelet Count 240 X10^3/uL (150-400); Red Cell Distribution Width 13.9 % (11.6-14.8); White Blood Cell Count 7.9 X10^3/uL (4.5-11.0)
== END ==
PROVIDERS: PCP Nurse Practitioner; Referring Provider Family Medicine; Visit Provider Family Medicine
DX: K62.5 Hemorrhage of anus and rectum (principal)
CPT/HCPCS: 36415; 85025

== ENCOUNTER → 2023-08-20 12:14 | Outpatient (CLI) | payer MEDICARE, OTHER, SELFPAY ==
--- NOTE | 2023-08-20 12:16 | DI.ECHO.S_ITS ---
[facility] +---------+ : : [address] : : : : [id number] : : : : Phone: [phone]+ Echocardiogram Report + + :Name: VINCENT GOOD Study Date: 08/20/2023 Height: 69 in : :[facility] ReadingLocation: Weight: 191 lb : : Gender: Male BSA: 2.0 m2 : :: 1945 Age: 78 yrs BP: 174/74 mmHg: :Reason For Study: HYPERTENSION : :Ordering Physician: MARIELLA, : :JENNIFER Performed By: Beth Heredia : :Referring: JENNIFER WOLFF : + + Interpretation Summary Normal sinus rhythm. Normal LV size and wall thickness; normal wall motion and LV systolic function. EF is 60-65%. No diastolic dysfunction. Mild LA enlargement; otherwise normal chamber sizes. No significant valvular abnormalities. No prior study available for comparison. Procedure: A two-dimensional transthoracic echocardiogram with color flow and Doppler was performed. The study quality was technically adequate. There is no prior echocardiogram noted for this patient. The patient was in sinus rhythm with heart rates between 57-63 bpm during the exam. The patient had occasional PVCs during the exam. Left Ventricle: The left ventricle is normal in size. Proximal septal thickening is noted. The ejection fraction is estimated to be 60-65%. Right Ventricle: The right ventricle is normal in size and function. Atria: The left atrium is mildly dilated. Right atrial size is normal. There is no Doppler evidence for an interatrial shunt. Mitral Valve: The mitral valve is normal in structure and function. There is trace mitral regurgitation. Aortic Valve: The aortic valve is trileaflet. The aortic valve is slightly calcified. There is no aortic valve stenosis. No aortic regurgitation is present. Tricuspid Valve: The tricuspid valve is normal in structure and function. There is mild tricuspid regurgitation. Pulmonic Valve: The pulmonic valve leaflets are thin and pliable; valve motion is normal. There is no pulmonic valvular regurgitation. Great Vessels: The aortic root is normal size. The dimensions of the ascending aorta are normal. The IVC is of normal diameter and collapses greater than 50% with a sniff. This suggests a low right atrial pressure of 3 mm Hg. Pericardium/ Pleura There is no pericardial effusion. There is no pleural effusion. MMode/2D Measurements & Calculations LVIDd: 4.8 cm LVOT diam: 2.1 cm LVIDs: 3.3 cm Ao root diam: 3.2 cm FS: 30.5 % asc Aorta Diam: 2.9 cm IVSd: 0.82 cm Ao Arch Diam (Prox Trans): 3.2 cm LVPWd: 1.1 cm LV south. diameter/BSA (cm/m^2): 2.4 LV sys. diameter/BSA (cm/m^2): 1.6 LA A2 area: 23.4 cm2 RA long axis: 5.2 cm LA A4 area: 17.6 cm2 RA area: 14.6 cm2 LA length (vol): 4.9 cm RA vol: 35.1 ml LA vol: 70.7 ml RA : 17.3 ml/m2 LA vol index: 34.9 ml/m2 IVC diam: 1.6 cm RVD1 (basal): 3.7 cm TAPSE: 1.6 cm Doppler Measurements & Calculations Ao V2 max: 105.6 cm/sec LVOT Max Ras: 109.9 cm/sec Ao V2 mean: 88.2 cm/sec LV V1 max P.8 mmHg Ao max P.5 mmHg LV V1 VTI: 27.9 cm Ao mean P.2 mmHg JAMEE(I,D): 3.5 cm2 Ao V2 VTI: 28.2 cm JAMEE(V,D): 3.7 cm2 sev ratio: 0.99 JAMEE indexed to BSA (cm^2/m^2): 1.7 MV E max ras: 81.8 cm/sec PA V2 max: 121.9 cm/sec MV A max ras: 64.9 cm/sec PA V2 mean: 90.6 cm/sec MV E/A: 1.3 PA mean P.5 mmHg Med Peak E' Ras: 5.9 cm/sec PA pr(Accel): 48.2 mmHg E/E' med: 13.8 Lat Peak E' Ras: 7.3 cm/sec E/E' lat: 11.3 E/e' average: 12.5 MV dec time: 0.21 sec SV(LVOT): 98.4 ml Electronically signed by: Charisma Mosqueda M.D. on Reading Physician:08/21/2023 06:18 AM
== END ==
LOC: ECHO 12:16
PROVIDERS: PCP Nurse Practitioner; Referring Provider Nurse Practitioner; Visit Provider Nurse Practitioner
DX: I07.1 Rheumatic tricuspid insufficiency (principal); I10 Essential (primary) hypertension
CPT/HCPCS: 93005; 93010; 93306

== ENCOUNTER → 2023-08-27 08:46 | Outpatient (CLI) | payer MEDICARE, OTHER, SELFPAY ==
[2023-08-27 09:56] LABS: Add Manual Diff / Slide Review NO; Basophils Absolute Auto 100 /uL (0-100); Basophils Percent Auto 0.8 % (0-2); Eosinophils Absolute Auto 600 /uL (0-450); Eosinophils Percent Auto 8.4 % (2-4); Hematocrit 41.7 % (41-53); Hemoglobin 14.1 g/dL (13.5-17.5); Lymphocytes Absolute Auto 2600 /uL (1100-4500); Mean Corpuscular HGB Conc 33.7 % (30-36); Mean Corpuscular Volume 91.9 fL (80-100); Monocytes Absolute Auto 600 /uL (0-900); Monocytes Percent Auto 8.4 % (3-14); Neutrophils Absolute Auto 3400 /uL (1500-7000); Neutrophils Percent Auto 46.4 % (50-75); Platelet Count 240 X10^3/uL (150-400); Red Blood Cell Count 4.54 X10^6/uL (4.5-5.9); Red Cell Distribution Width 14.2 % (11.6-14.8); White Blood Cell Count 7.3 X10^3/uL (4.5-11.0)
[2023-08-27 10:24] LABS: Alanine Aminotransferase 63 IU/L (<50); Albumin 4.6 g/dL (3.5-5.0); Albumin Globulin Ratio 1.4 (1.0-2.8); Alkaline Phosphatase 56 U/L (38-126); Aspartate Aminotransferase 64 IU/L (17-59); BUN Creatinine Ratio 28.9 (6-22); Bilirubin Total 0.6 mg/dL (0.2-1.3); Blood Urea Nitrogen 22 mg/dL (9-20); Calcium 9.7 mg/dL (8.4-10.2); Carbon Dioxide 31 mmol/L (22-32); Chloride 108 mmol/L (98-107); Cholesterol 108 mg/dL (140-199); Estimated Glomerular Filt Rate > 60 mL/min (>60); Globulin 3.3 g/dL (1.7-4.1); Glucose 115 mg/dL (80-110); HDL Cholesterol 33 mg/dL (40-60); HEMOLYSIS < 15 (0-50); LDL Cholesterol Calculated 60 mg/dL (<100); Potassium 4.5 mmol/L (3.4-5.1); Sodium 144 mmol/L (137-145); Total Protein 7.9 g/dL (6.3-8.2); Triglycerides 77 mg/dL (35-150)
[2023-08-27 10:41] LABS: Free T3, Triiodothyronine Free 4.12 pg/mL (2.77-5.27)
[2023-08-27 10:55] LABS: Thyroid Stimulating Hormone 3.61 uIU/mL (0.47-4.68)
[2023-08-27 10:58] LABS: Prostate Specific Antigen Scrn 0.214 ng/mL (0.1-4.0)
[2023-08-27 11:04] LABS: Free T4, Direct Thyroxine 0.95 ng/dL (0.78-2.19)
[2023-08-27 11:53] LABS: Creatinine Urine Random 140.5 mg/dL
[2023-08-27 11:59] LABS: Microalbumi Creatinin Ratio Ur 9.2 ug/mg CR (<30); Microalbumin Urine Random 1.3 mg/dL (0-1.6)
== END ==
PROVIDERS: PCP Nurse Practitioner; Referring Provider Nurse Practitioner; Visit Provider Nurse Practitioner
DX: F03.90 Unspecified dementia, unspecified severity, without behavioral disturbance, psychotic disturbance, mood disturbance, and anxiety (principal); I10 Essential (primary) hypertension; Z12.5 Encounter for screening for malignant neoplasm of prostate; R47.01 Aphasia; E78.5 Hyperlipidemia, unspecified; Z79.899 Other long term (current) drug therapy
CPT/HCPCS: 36415; 80053; 80061; 82043; 82570; 84439; 84443; 84481; 85025; G0103

== ENCOUNTER 2024-03-23 11:26 | Outpatient (RCR) | payer MEDICARE, OTHER, SELFPAY ==
--- NOTE | 2024-03-23 13:30 | OT.OP.TRT ---
Visit Care Team Role Provider Type Jasen Pearson DO Attending Provider Physician Family Provider Primary Care Provider Referring Provider Specialty: Family Practice Address: [address] [place] [address], [id number] Email: [email or web address] ('Ritesh') was referred to outpatient OT secondary to concerns re: non-functioning R arm (predominantly concerns re: R hand and flexor tone). Ritesh reportedly had stroke in 2008; he received intensive therapy the first year after the stroke and then his insurance did not 'cover additional services'. He most recently received outpatient PT here at [facility] w/ focus on fall recovery. Ritesh denied use of night and/or day splint; he denied rx of muscle relaxer as well. Ritesh ambulates w/ SPC positioned in the L hand; he reportedly is able to walk the couple's dog w/ leash in the left hand while managing the SPC. Education was provided re: tone management exercises/positioning exercises for the R hand. Rec consideration of night splint as well. Ritesh denied need for additional OT services.
== END 2024-03-27 10:36 | disposition home or self-care (01) ==
LOC: OT 11:26
PROVIDERS: Family Provider Family Medicine; PCP Family Medicine; Referring Provider Family Medicine; Visit Provider Family Medicine
DX: I25.2 Old myocardial infarction (principal)

== ENCOUNTER → 2024-03-24 09:42 | Outpatient (CLI) | payer MEDICARE, OTHER, SELFPAY ==
[2024-03-24 11:00] LABS: Add Manual Diff / Slide Review NO; Basophils Absolute Auto 100 /uL (0-100); Basophils Percent Auto 0.7 % (0-2); Eosinophils Absolute Auto 300 /uL (0-450); Eosinophils Percent Auto 4.1 % (2-4); Hematocrit 40.9 % (41-53); Hemoglobin 13.9 g/dL (13.5-17.5); Lymphocytes Absolute Auto 2800 /uL (1100-4500); Lymphocytes Percent Auto 37.4 % (25-40); Mean Corpuscular HGB Conc 33.9 % (30-36); Mean Corpuscular Hemoglobin 30.9 PG (26-34); Mean Corpuscular Volume 91.4 fL (80-100); Monocytes Absolute Auto 500 /uL (0-900); Neutrophils Absolute Auto 3700 /uL (1500-7000); Neutrophils Percent Auto 50.8 % (50-75); Platelet Count 238 X10^3/uL (150-400); Red Blood Cell Count 4.48 X10^6/uL (4.5-5.9); White Blood Cell Count 7.4 X10^3/uL (4.5-11.0)
[2024-03-24 11:29] LABS: Alanine Aminotransferase 52 IU/L (<50); Albumin 4.3 g/dL (3.5-5.0); Albumin Globulin Ratio 1.7 (1.0-2.8); Alkaline Phosphatase 56 U/L (38-126); Aspartate Aminotransferase 45 IU/L (17-59); BUN Creatinine Ratio 24.7 (6-22); Bilirubin Total 0.5 mg/dL (0.2-1.3); Blood Urea Nitrogen 21 mg/dL (9-20); Calcium 9.6 mg/dL (8.4-10.2); Carbon Dioxide 23 mmol/L (22-32); Chloride 107 mmol/L (98-107); Cholesterol 96 mg/dL (140-199); Estimated Glomerular Filt Rate > 60 mL/min (>60); Globulin 2.6 g/dL (1.7-4.1); Glucose 107 mg/dL (80-110); HDL Cholesterol 33 mg/dL (40-60); HEMOLYSIS < 15 (0-50); LDL Cholesterol Calculated 52 mg/dL (<100); Potassium 4.5 mmol/L (3.4-5.1); Sodium 141 mmol/L (137-145); Total Protein 6.9 g/dL (6.3-8.2); Triglycerides 57 mg/dL (35-150)
[2024-03-24 11:58] LABS: Prostate Specific Antigen Scrn 0.225 ng/mL (0.1-4.0)
== END ==
PROVIDERS: Family Provider Family Medicine; PCP Family Medicine; Referring Provider Family Medicine; Visit Provider Family Medicine
DX: E78.5 Hyperlipidemia, unspecified (principal); Z12.5 Encounter for screening for malignant neoplasm of prostate; Z95.5 Presence of coronary angioplasty implant and graft; I10 Essential (primary) hypertension; Z12.11 Encounter for screening for malignant neoplasm of colon; R53.1 Weakness
CPT/HCPCS: 36415; 80053; 80061; 85025; G0103